=== PATIENT | female | born 1950 | race Caucasian/White ===

== ENCOUNTER 2017-10-09 18:40 | Emergency (ER) | payer OTHER ==
[~2017-10-09] VITALS: Ht 157.5 cm; Wt 67.6 kg
[~2017-10-09 18:40] MED LIST: FLEXERIL10 MG PO
--- NOTE | 2017-10-09 19:07 | ED NECK/BACK PAIN COMPLAINT ---
History of Present Illness General Chief Complaint: Neck/Upper Back Pain/Injury Stated Complaint: BACK PAIN Source: patient Exam Limitations: no limitations Vital Signs & Intake/Output Vital Signs & Intake/Output Vital Signs Date Time Temp Pulse Resp B/P B/P Pulse O2 O2 Flow FiO2 Mean Ox Delivery Rate 10/09 2331 96.1 80 18 139/70 98 Room Air 10/09 2008 97.2 88 18 142/82 98 Room Air 10/09 1900 100 10/09 1854 97.5 91 20 165/81 99 Room Air ED Intake and Output 10/10 0000 10/09 1200 Intake Total 0 Output Total Balance 0 Intake, Oral 0 Patient 149 lb Weight Weight Reported by Patient Measurement Method Allergies Coded Allergies: MDX - Tetracycline (TETRACYCLINE) (Mild, YEAST INFECTION 07/31/13) Reconcile Medications CYCLOBENZAPRINE HCL (Flexeril) 10 MG TABLET 1 TAB PO TID PRN PAIN Triage Note: 67 Y/O TO ROOM 3 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 FELT HEARTBURN AFTER BELCH THAT RESOLVED. Triage Nurses Notes Reviewed? 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 Past medical history also includes GERD hypertension hypothyroidism and hyperlipidemia who presents to emergency and that patient today one hour prior to arrival she was in her normal state of health and patient states that she has extensive history of back spasms were while at rest at the nail salon she had acute onset of thoracic muscular back spasms however the pain radiated to the right and left flank where she abruptly went to the urgent care facility next to the her salon where patient received an EKG and was advised to present to the emergency room prior to arrival from the emergency room patient does state that she had a significant belching episode which completely resolved her symptoms and states that since she has been asymptomatic. 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 FARIA, the pacer was placed APproximate one year ago patient had a stress test at that time showing unremarkable findings patient states that she works out every day were patient was on the elliptical earlier today and had no symptoms. Patient does state that after the belching episode she had mild reflux symptoms however this has resolved Patient denied any chest pain shortness of breath cough nausea vomiting leg swelling hemoptysis diaphoresis arm pain and jaw pain (Lavell Lorenz) Past History Travel History Traveled to [place] past 21 day No Medical History Any Pertinent Medical History? see below for history Neurological: NONE EENT: NONE Cardiovascular: hypertension, hyperlipidemia, PACEMAKER Respiratory: NONE Gastrointestinal: NONE Hepatic: NONE Renal: NONE Musculoskeletal: NONE Psychiatric: NONE Endocrine: hypothyroidism Blood Disorders: NONE Cancer(s): NONE TERRAPIN FISHER/Reproductive: NONE Pneumonia Vaccine: 06/17/17 Influenza Vaccine: 06/17/17 Tetanus Vaccine: 06/17/09 Surgical History Surgical History: non-contributory Psychosocial History What is your primary language [place] Tobacco Use: Quit <30 days ago ETOH Use: denies use Illicit Drug Use: denies illicit drug use Family History Hx Contributory? No (Lavell Lorenz) Review of Systems Review of Systems Constitutional: Reports: no symptoms. Eyes: Reports: no symptoms. Ears, Nose, Throat, Mouth: Reports: no symptoms. Respiratory: Reports: see HPI. Cardiovascular: Reports: see HPI. Gastrointestinal/Abdominal: Reports: no symptoms, see HPI. Musculoskeletal: Reports: see HPI, back pain, muscle pain. Skin: Reports: no symptoms. Neurological/Psychological: Reports: no symptoms. All Other Systems: Reviewed and Negative (Lavell Lorenz) Physical Exam Physical Exam General Appearance: no apparent distress, alert Head: atraumatic Eyes: Bilateral: normal appearance, PERRL. Ears, Nose, Throat, Mouth: hearing grossly normal Neck: normal inspection, supple Respiratory: normal breath sounds, chest non-tender, no respiratory distress Cardiovascular: regular rate/rhythm Peripheral Pulses: 2+ radial (R) Gastrointestinal: normal bowel sounds, soft, non-tender Back: normal inspection, normal range of motion, no vertebral tenderness Extremities: non-tender, normal range of motion Neurologic/Psych: no motor/sensory deficits, awake, alert, oriented x 3 Skin: intact, normal color, warm/dry Core Measures CVA/TIA Diagnosis: No (Lavell Lorenz) Progress Differential Diagnosis: AAA, aortic dissection, C spine injury, carotid dissection, cauda equina syn, herniated disc, myofascial strain, pyelo/UTI, sciatica, spinal cord inj, thoracic outlet syn, T/L spine injury, ureterolithiasis Plan of Care: Orders Procedure Date/time Status TROPONIN LEVEL 10/09 2344 Complete EKG 10/09 2344 Active Telemetry/Acute Care Assistant 10/09 1913 Active THYROID STIMULATING HORMONE 10/09 1913 Complete TROPONIN LEVEL 10/09 1913 Complete LIPASE 10/09 1913 Complete FREE T4 10/09 1913 Complete D-DIMER 10/09 1913 Complete COMPREHENSIVE METABOLIC PANEL 10/09 1913 Complete CBC WITHOUT DIFFERENTIAL 10/09 1913 Complete AMYLASE 10/09 1913 Complete EKG 10/09 1906 Active Laboratory Tests 10/09/17 2332: Troponin I < 0.01 10/09/171915: Anion Gap 15, Estimated GFR > 60, BUN/Creatinine Ratio 23.8, Glucose 97, Calcium 9.3, Total Bilirubin 0.2, AST 25, ALT 44, Alkaline Phosphatase 92, Troponin I < 0.01, Total Protein 7.1, Albumin 4.4, Globulin 2.7, Albumin/Globulin Ratio 1.6, Amylase 71, Lipase 118, TSH 2.280, Free T4 1.15, D-Dimer High Sensitivty < 200, CBC w Diff NO MAN DIFF REQ, RBC 4.61, MCV 85.4, MCH 28.5, RDW 12.6, MPV 9.1, Gran % 57.6, Lymphocytes % 32.8, Monocytes % 8.2, Eosinophils % 1.1, Basophils % 0.3, Absolute Granulocytes 4.0, Absolute Lymphocytes 2.3, Absolute Monocytes 0.6 , Absolute Eosinophils 0.1, Absolute Basophils 0, PUBS MCHC 33.3 Patient on initial examination was resting comfortably at bedside prior to arrival EKG showed ventricular paced rhythm at approximately 82 bpm initial EKG shows no changes from the one performed at urgent care facility, Patient will receive second set troponin after 4 hours compliance monitor placed 2100 patient was reevaluated resting the bedside 2219 patient again was reevaluated noted to be normal sinus rhythm Troponin negative Discussed was also patient 2251- patient still asymptomatic second troponin will be evaluated approximately 40 minutes Repeat EKG was unremarkable upon discharge patient looks well no apparent distress and will comply with discharge instructions and had no questions Repeat troponin was unremarkable Diagnostic Imaging: Viewed by Me: Radiology Read, CT Scan. Radiology Impression: no acute abnormality, no fracture Initial ED EKG: ventricular paced 86 bpm Repeat EKG: unchanged Comments: PATIENT: HOLDEN SPIVEY PRESENT AGE: 67 PATIENT ACCOUNT NO: [id number] : 51 LOCATION: [facility] ORDERING PHYSICIAN: Lavell RUEDA SERVICE DATE: 10/09/17 EXAM TYPE: RAD - XRY-CHEST XRAY, TWO VIEWS EXAMINATION: CHEST 2 VIEWS CLINICAL INFORMATION: Chest pain. COMPARISON: January 26, 2015. TECHNIQUE: PA and lateral views of the chest were obtained. FINDINGS: The cardiac silhouette is not enlarged. Pacer leads overlie the right atrium and right ventricle. The mediastinal and hilar contours are unremarkable. There are neither pleural effusions nor pneumothoraces. There are no consolidations. The osseous structures are unremarkable. IMPRESSION: No evidence for acute disease. DICTATED BY: Jeremi Leroy MD DATE/TIME DICTATED:10/09/172032 HELP DESK ASSOCIATE:[facility] DATE/TIME TRANSCRIBED:10/09/172032 CONFIDENTIAL, DO NOT COPY WITHOUT APPROPRIATE AUTHORIZATION. 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 I have also reviewed all the pertinent lab results and diagnostic results. I agree with the findings and the plan of care as documented in the PA's/NATIONAL SALES EXECUTIVE's documentation. [x] I have reviewed the ED Record and agree with the PA's/NATIONAL SALES EXECUTIVE's documentation. [] Additions or exceptions (if any) to the PAs/NATIONAL SALES EXECUTIVE's note and plan are summarized below: [] (Jaci FERNANDEZ,Steven Sherwood)
[2017-10-09 19:47] LABS: ABSOLUTE BASOPHIL COUNT 0 /CUMM (0.0-0.2); ABSOLUTE EOSINOPHIL COUNT 0.1 /CUMM (0.0-0.7); ABSOLUTE LYMPH COUNT 2.3 /CUMM (1.2-3.4); ABSOLUTE MONOCYTE COUNT 0.6 /CUMM (0.10-0.60); BASOPHIL % 0.3 % (0.0-2.0); EOSINOPHIL % 1.1 % (0-5); GRANULOCYTE % 57.6 % (42.2-75.2); HEMATOCRIT 39.4 % (37-47); MEAN CORPUSCULAR HGB 28.5 PG (27.0-31.0); MEAN CORPUSCULAR HGB CONC 33.3 G/DL (33.0-37.0); MEAN CORPUSCULAR VOLUME 85.4 FL (81.0-99.0); MEAN PLATELET VOLUME 9.1 FL (7.4-10.4); PLATELET COUNT 241 /CUMM (130-400); RBC DISTRIBUTION WIDTH 12.6 % (11.5-14.5); RED BLOOD CELL CT 4.61 /CUMM (4.20-5.40)
--- NOTE | 2017-10-09 20:37 | RADIOLOGY REPORT ---
EXAMINATION: CHEST 2 VIEWS CLINICAL INFORMATION: Chest pain. COMPARISON: January 26, 2015. TECHNIQUE: PA and lateral views of the chest were obtained. FINDINGS: The cardiac silhouette is not enlarged. Pacer leads overlie the right atrium and right ventricle. The mediastinal and hilar contours are unremarkable. There are neither pleural effusions nor pneumothoraces. There are no consolidations. The osseous structures are unremarkable. IMPRESSION: No evidence for acute disease.
[2017-10-09 23:31] VITALS: BP 139/70
== END 2017-10-10 00:50 ==
LOC: ERH 18:40
PROVIDERS: Physician Assistant
DX: M62.830 Muscle spasm of back (principal); I10 Essential (primary) hypertension; Z87.891 Personal history of nicotine dependence
CPT/HCPCS: 71046; 93005; 93010